=== PATIENT | female | born 1975 ===

== ENCOUNTER 2016-10-26 06:08 | Day surgery (SDC) | payer MEDICAID ==
[2016-10-22 11:21] VITALS: BMI 26.4
--- NOTE | 2016-10-26 06:52 | CP.SDSHP ---
Same Day Surgery H & P - History Proposed Procedure: Left ankle fibular ORIF with deltoid ligament repair Pre-Op Diagnosis: Left ankle fibular fracture and Deltoid ligament tear - Previous Medical/Surgical History Cardiac: Other Pulmonary: Other Endocrine/Metabolic: Other Neuro: Other Misc: Hepatitis Pain: 4.Moderate Pain - Allergies Allergies: Allergies No Known Allergies Allergy (Verified 10/26/16 06:30) - Physical Exam Mental Status: Alert & Oriented x3 Neuro: WNL Heart: WNL Lungs: WNL GI: WNL - {Optional Preform as Required} Breast: Other Abdomen: Other Rectal: Other Integument: Other BUSINESS OPERATIONS SPECIALIST: Other : Other Ortho: Other ENT: Other - Impression Impression: Pt was seen and examined in SDS. Pt NPO status was confirmed. All Pre-op testing and clearance was in the chart. Pt has exhausted all conservative treatment at this time and is opting for surgical intervention. Pt was explained procedure and post-operative course. All pt's questions were answered to satisfaction. No guarantees were made. Pt understands all risks, benefits and complications of procedure. Pt will follow-up with Dr. Garcia Pt. Evaluated Today:Candidate for Anesthesia & Procedure: Yes Short Stay Discharge - Short Stay Discharge Admitting Diagnosis/Reason for Visit: LT FIBULAR FRACTURE Disposition: HOME/ ROUTINE Medications: Cephalexin [Keflex] 500 mg PO TID #21 cap oxyCODONE/Acetaminophen [Percocet 5/325 mg Tab] 5 - 325 mg PO Q4 PRN #20 tab PRN Reason: Pain, Moderate (4-7) Referrals: Sherri Landry MD [Primary Care Provider] - Podiatry Clinic [Outside] Follow-up: Follow up with Podiatry clinic at [facility] with Dr. Garcia Instructions: RICE Therapy (GEN), Oxycodone/Acetaminophen (By mouth), Acetaminophen/Codeine (By mouth), Crutch Instructions (DC), Crutch Instructions (GEN) Additional Instructions (Diet, Activity): Non-weight bearing to Left lower extremity with use of crutches Progress Note/Discharge Note with Instructions: Patient in good/stable condition for discharge home. Pt to resume medications per medical reconciliation. Resume regular diet. Please keep dressing clean, dry, & intact to surgical site, use plastic bag over bandage for showering, wear post op shoe at all times when ambulating, call clinic if you see signs of infection (redness, swelling, malodor), please make an appointment to see Dr. Garcia in office/clinic within 1 week for post-op check. (Wednesday)
--- NOTE | 2016-10-26 06:52 | CP.PCM.PN ---
Subjective - Date & Time of Evaluation Date of Evaluation: 10/26/16 Time of Evaluation: 06:30 - Subjective Subjective: 41 year old female patient with PMHx of alcohol abuse and Hep A was seen at bedside TCU this morning for scheduled surgery of Left fibular ORIF with Deltoid ligament repair. Patient presents with fracture to Left fibula at the level of ankle joint after slipping down from stairs two weeks ago. Patient states that she was going from her room to living room at night without light and slipped. Patient understands the plan for surgery of fixating her Left fibular with plates and screws. Patient agrees with the surgical plan. NPO status is confirmed with the patient. (No food or liquid after 6PM yesterday) Patient denies of any N/V/F/C or SOB today. Objective - Constitutional Appears: Well, Non-toxic, No Acute Distress - Extremities Exam Additional comments: Left lower extremity exam DERM: No open wound is noted. No erythema is noted around the Left ankle. No sign of acute infection is noted. VASC: Mild edema noted around the Left ankle. Non-palpable DP and PT noted bilaterally at 2/4/ [employer] less than 3 seconds noted to all digits bilaterally. NEURO: Gross sensation intact ORTHO: Pain on palpation - Neurological Exam Neurological Exam: Alert, Awake, Oriented x3 - Psychiatric Exam Psychiatric exam: Normal Affect, Normal Mood - Skin Skin Exam: Normal Color, Warm Assessment and Plan - Assessment and Plan (Free Text) Assessment: 41 yo female patient presenting with Left fibular fracture and Deltoid ligament tear Plan: Pt was seen and examined in SDS Pt NPO status was confirmed All Pre-op testing and clearance was in the chart Pt has exhausted all conservative treatment at this time and is opting for surgical intervention Pt was explained procedure and post-operative course All pt's questions were answered to satisfaction No guarantees were made Pt understands all risks, benefits and complications of procedure Pt will follow-up with Dr. Garcia
[2016-10-26] MEDS ORDERED: Bupivacaine 0.5% 50 ML IJ ONE (06:55)
[2016-10-26] MEDS ORDERED: ceFAZolin 1 GM in Sodium Chloride 0.9% 100 ML IVPB ONE (06:55)
[2016-10-26] MEDS ORDERED: Lidocaine 1% Inj (20ml) IJ ONE (06:55)
[2016-10-26] MEDS ORDERED: Lactated Ringer's 1,000 ML IV SCH (07:00)
[2016-10-26 07:05] LABS: BASO % 0.9 % (0.0-2.0); EOS # 0.1 K/uL (0.0-0.7); EOS % 2.1 % (0.0-4.0); HEMATOCRIT 39.5 % (34.0-47.0); LYMPH # 1.6 K/uL (1.0-4.3); MEAN CELL VOLUME 88.9 fl (81.0-99.0); MEAN CORPUSCULAR HEMOGLOBIN 28.7 pg (27.0-31.0); MEAN CORPUSCULAR HGB CONC 32.4 g/dL (33.0-37.0); MONO # 0.3 K/uL (0.0-0.8); MONO % 7.3 % (0.0-10.0); NEUT # 2.5 K/uL (1.8-7.0); NEUT % 55.7 % (50.0-75.0); NRBC % 0.4 % (0.0-0.0); RED CELL DISTRIBUTION WIDTH 17.2 % (11.5-14.5); WHITE BLOOD COUNT 4.6 K/uL (4.8-10.8)
[2016-10-26 07:07] VITALS: RESP 18
[2016-10-26] MEDS ORDERED: Bupivacaine 0.5% Inj(30mL) ONE (07:24)
[2016-10-26 07:27] LABS: PARTIAL THROMBOPLASTIN TIME 25.1 SECONDS (23.3-32.5)
[2016-10-26] MEDS ORDERED: Propofol 10 mg/ml Inj (20 ML) ONE (07:30)
[2016-10-26 07:31] LABS: BLOOD UREA NITROGEN 18 mg/dl (7-17); CALCIUM 9.2 mg/dL (8.4-10.2); CARBON DIOXIDE 22 mmol/L (22-30); CHLORIDE 106 mmol/L (98-107); GFR AFRICAN-AMERICAN > 60; GLUCOSE,RANDOM 86 mg/dL (65-105); POTASSIUM 4.1 MMOL/L (3.6-5.0); SODIUM 141 mmol/l (132-148)
[2016-10-26] MEDS ORDERED: Rocuronium 10 mg/ml (5 ml) ONE (07:31)
[2016-10-26] MEDS ORDERED: Succinylcholine 200 mg/10 ml Inj IV ONE (07:31)
[2016-10-26] MEDS ORDERED: Neostigmine Methylsulfate 3mg/3ml Syringe IV ONE (07:31)
[2016-10-26] MEDS ORDERED: Midazolam 2 MG/2 ML VIAL ONE (07:31)
--- NOTE | 2016-10-26 07:55 | CARD ---
APPROVED REPORT EKG Measurement Heart [id number] AL [id number] <Conclusion> Sinus bradycardia Otherwise normal ECG
[2016-10-26] MEDS ORDERED: Lactated Ringer's 1,000 ML IV ONE ×2 (08:54→10:50)
[2016-10-26] MEDS ORDERED: HYDROmorphone 0.5 mg/0.5 ml ISec IVP PRN (08:57)
[2016-10-26] MEDS ORDERED: DiphenhydrAMINE 50 mg/ml Inj IVP PRN (08:57)
[2016-10-26] MEDS ORDERED: Ropivacaine 0.5% 30ML IV ONE (09:43)
[2016-10-26] MEDS ORDERED: Bupivacaine HCl 0.25% PF (10 ml) Inj ONE (10:56)
[2016-10-26] MEDS ORDERED: Liquid Adhesive TOP ONE (10:57)
[2016-10-26] MEDS ORDERED: Bupivacaine HCl 0.25% PF (10 ml) Inj IJ ONE (11:04)
[2016-10-26] MEDS ORDERED: Bumetanide 0.25 MG/ML 10ml inj IV ONE (11:04)
[2016-10-26] MEDS ORDERED: Oxycodone/Acetaminophen 5/325 mg Tab PO PRN ×2 (12:00)
--- NOTE | 2016-10-26 12:03 | PCM.SURG1 ---
Surgeon's Initial Post Op Note - Surgeon's Notes Surgeon: Dr. Garcia DPM File Machine Operator: Dr. Anand PGY-3, Dr. Fowler PGY-3 Anesthesia Administered By: Dr. Petersen Pre-Operative Diagnosis: Left anklefibular fracture with deltoid ligament rupture Operative Findings: Materials: 3-0 Vicryl. 4-0 Prolene. 1x 5 hole 1/3 tubular plate. 2x 2.7 screws. 1x Arthrex Internal Brace Post-Operative Diagnosis: same Operation Performed: Left ankle ORIF with deltoid ligament repair Specimen/Specimens Removed: None Estimated Blood Loss: EBL {In ML}: 10 Blood Products Given: N/A Drains Used: No Drains Post-Op Condition: Good Date of Surgery/Procedure: 10/26/16 Time of Surgery/Procedure: 08:10
[2016-10-26] MEDS: HYDROmorphone 0.5 mg/0.5 ml ISec IVP PRN ×3 (12:10→13:00)
--- NOTE | 2016-10-26 12:36 | PCM.ANESB2 ---
Popliteal Nerve Block - Popliteal Nerve Block Date of Procedure: 10/26/16 Anesthesiologist: Trinity Pre-Procedure Diagnosis: Left fibular fracture Post-Procedure Diagnosis: Left fibular fracture Procedure Performed: Popliteal Nerve Block Left - Procedure Popliteal Nerve Block: This procedure was explained to the patient that it is for post-operative pain management. Consent was obtained after a thorough discussion with the patient regarding the benefits and possible complications of local anesthetic block of the sciatic nerve at the popliteal level. The patient was brought to the operating room and standard monitors are applied. Time-out was held with the circulating nurse to confirm the correct surgery and the appropriate block. After applying oxygen by nasal cannula and administering IV Sedation, patient's operative leg was gently raised and supported and the groove in between the biceps femoris and vastus lateralis muscles was carefully palpated. The skin approximately 8cm above the popliteal crease was then marked. The ultrasound transducer was then applied to the posterior thigh approximately 8cm above the popliteal crease in the transverse plane and the sciatic nerve before its division was visualized lateral to the popliteal artery and in between the bicep femoris and semimembranosus/semitendinosus muscles. After identification, the lateral portion of the thigh was prepped with Betadine solution three times and Lidocaine 1% was injected subcutaneously for topical anesthesia. At this point, a # 21 gauge Stimuplex insulated 4 inch needle was inserted into pre-marked area and advanced in a perpendicular direction. The needle was inserted above the ultrasound transducer in-plane towards the sciatic nerve in a [id number] direction. Needle advancement was performed carefully under direct ultrasound visualization. Nerve stimulator was used and dorsiflexion of the left foot was elicited at a current of 0.3 MA. After repeated negative aspiration, 20 cc of 0.5 % Ropivicaine was injected. Under ultrasound guidance the local anesthetics were observed tenting the epidural sheath and surrounding the roots of the sciatic nerve. The needle was removed intact and sterile dressing was applied. The patient tolerated the popliteal nerve block well with stable vital signs and was subsequently prepared for the surgery.
--- NOTE | 2016-10-26 12:54 | RAD ---
Left ankle radiographs History: Left ankle surgery Comparison: None available Findings: Images are obtained through a cast which obscures osseous detail. Metallic plate and screw fixation of the distal fibula. Alignment appears satisfactory. Remainder of the visualized osseous structures appear unremarkable. Impression: Metallic plate and screw fixation of the distal fibula.
--- NOTE | 2016-10-26 13:01 | RAD ---
PROCEDURE: Open reduction internal fixation left ankle fracture HISTORY: LEFT ANKLE COMPARISON: None TECHNIQUE: Standard protocol for this study/examination. FINDINGS: Total fluoroscopic time (continuous mode) utilized during the procedure: 85.8 seconds IMPRESSION: Submitted images from the current procedure: 14
[2016-10-26] MEDS ORDERED: Oxycodone/Acetaminophen 5/325 mg Tab PO ONE (15:25)
[2016-10-26 15:37] VITALS: TEMP 98
[2016-10-26 18:14] VITALS: BP 120/80; PULSE 88; O2SAT 99
--- NOTE | 2016-10-28 10:26 | OP ---
PROCEDURE DATE: 10/26/2016 SURGEON: Bill Garcia DPM REIMBURSEMENT CONSULTANT: Kika PGY-3. SECOND REIMBURSEMENT CONSULTANT: Malcolm PGY-3 ANESTHESIA: General with popliteal block. PREOPERATIVE DIAGNOSES: 1. Displaced fibular fracture, left. 2. Deltoid ligament tear, left ankle. POSTOPERATIVE DIAGNOSES: 1. Displaced fibular fracture, left. 2. Deltoid ligament tear, left ankle. PROCEDURE: 1. Open reduction and internal fixation of displaced fibular fracture, left ankle. 2. Repair of deltoid ligament tear with Arthrex internal brace, left ankle. INDICATIONS: The patient is a 41-year-old female with the above-mentioned diagnosis. The patient re ported falling 2 weeks ago and she was seen in the Emergency Room and told that she had a fractured a nkle. The patient is now requesting surgical intervention. The patient signed the consent after car eful explanation of all risks, benefits, complications, and alternatives to surgical procedure. No g uarantees were given nor implied. PREPARATION: The patient was brought to the operating room, placed on the operating room table in morillo pine position. A well-padded thigh tourniquet was applied to patient's left thigh. After induction of general anesthesia, the patient's left lower extremity was prepped and draped in usual sterile man ner. The patient's left lower extremity was then exsanguinated with Esmarch and the pneumatic thigh tourniquet was inflated to 300 mmHg and the procedure began. PROCEDURE #1 OPEN REDUCTION AND INTERNAL FIXATION OF LEFT DISPLACED FIBULAR FRACTURE: Attention was directed to the lateral aspect of the patient's left lower extremity where, utilizing a #15 blade, a 6 cm linear longitudinal incision was created overlying the central aspect of the distal fibula. Th e incision was deepened through subcutaneous tissue with care being taken to identify and retract all vital neurovascular structures. All bleeders were cauterized and ligated as necessary. At this rahda e, utilizing a #15 blade, a linear longitudinal incision was created through the periosteum in the sa pa attitude as the skin incision. The periosteum was then carefully freed from its osseous attachmen ts and reflected medially and laterally, exposing the distal aspect of the fibula as well as the spir al fracture into the operative field. At this time, the distal fracture fragment was mobilized and t he fracture itself was debrided of all soft tissue utilizing a curette. Next, with the use of a redu ction clamp, the fibular fracture was then distracted and reduced and temporarily fixated utilizing t he reduction clamp. Proper reduction was verified under fluoroscopy, making sure that the fibula had been brought out to proper length and that the ankle mortise had been restored. Once proper positio vance was verified under fluoroscopy, following standard AO principles and technique, a 2.7 lag screw was placed perpendicular to the fracture fragment. At this time, a 5-hole one-third tubular Synthes plate was placed across the fracture fragment and it was then filled with the appropriate locking and nonlocking cortical screws. At this time, the clamp was removed and again proper placement of the p late as well as proper length of the fibula was verified under fluoroscopy. At this time, the incisi on site was flushed with copious amounts of normal sterile saline. The deep tissue was reapproximate d and coapted utilizing 3-0 Vicryl. The subcutaneous tissue was reapproximated and coapted utilizing 4-0 Vicryl and the skin was reapproximated and coapted utilizing 4-0 Prolene in a running subcuticul ar technique. PROCEDURE #2 REPAIR OF DELTOID LIGAMENT TEAR, LEFT ANKLE: At this time, attention was directed to th e medial aspect of the patient's left ankle. Utilizing a #15 blade, a 4 cm linear longitudinal incis ion was created starting at the distal aspect of the patient's medial malleolus and extending distall y over the subtalar joint. The incision was deepened through subcutaneous tissues with care being ta noble to identify and retract all vital neurovascular structures. All bleeders were cauterized and lig ated as necessary. At this time, using fluoroscopy, the distal aspect of the medial malleolus was id entified and utilizing a #15 blade, a stab incision was created overlying the periosteum and all soft tissue was freed from the distal aspect of the medial malleolus. At this time, utilizing the drill bit from the Arthrex internal brace kit, a drill hole was created in the distal aspect of the medial malleolus and a full tap was performed. At this time, the suture anchor with the FiberTape loaded on to it was placed within the medial malleolus. Attention was then directed to the medial aspect of th e ____ where, under fluoroscopy, the sustentaculum sari was identified. At this time, a stab incisio n was created overlying the sustentaculum sari. All soft tissue was then cleared from the sustentacu lum sari and a guidewire was driven into the sustentaculum sari at the place where the second suture anchor for the Arthrex internal brace would be placed. Proper placement was again verified under flu oroscopy. At this time, the drill bit was placed over the guidewire and the sustentaculum sari was d rilled and tapped utilizing the instrumentation from the Arthrex internal brace kit. At this time, t he FiberTape was fed into the second Arthrex anchor and then with the foot placed in neutral, the sec ond anchor for the internal brace was then placed into the sustentaculum sari with proper tension not ed. Once the second anchor had been seated, the ankle joint was taken through a range of motion to m olaf sure that proper amount of tension had been placed at the deltoid ligament. All redundant FiberT ape was removed. The incision site was then flushed with copious amounts of normal sterile saline. The deep tissue was reapproximated and coapted utilizing 0 Vicryl. The subcutaneous tissue was reapp roximated and coapted utilizing 4-0 Vicryl and the skin was reapproximated and coapted utilizing 4-0 Prolene in a running subcuticular technique. All incision sites were then dressed with Steri-Strips and Betadine-soaked Adaptic. The patient did receive a postoperative injection of 10 mL of 0.5% Link paula plain on the medial side to block for the saphenous. The incision sites were then dressed in DS D and the patient was placed in a well-padded posterior splint with the foot held in 90 degrees in re lation to the leg. POSTOPERATIVE CONDITION: The patient tolerated the procedure and anesthesia well. The patient recei palak a popliteal block in the operating room and then was transferred to PACU with all vital signs sta ble and neurovascular status intact. The patient will be nonweightbearing in a posterior splint and crutches and will follow up with Dr. Garcia in the podiatry clinic at [facility] in 1 week. Paulina Rodriguez DPM Bill Garcia DPM cc: [id number] TT: 10/28/2016 10:26:05 tn
== END 2016-10-26 17:45 | disposition home or self-care (01) ==
LOC: H.OPSURG 06:08
PROVIDERS: ATTEND Podiatrist Foot & Ankle Surgery
DX: S82.492S Other fracture of shaft of left fibula, sequela (principal); S93.422S Sprain of deltoid ligament of left ankle, sequela; W19.XXXS Unspecified fall, sequela

== ENCOUNTER 2017-03-06 16:50 | Observation (INO) | payer MEDICAID ==
[2017-03-06 16:50] VITALS: BMI 22.4
[2017-03-06 16:54] VITALS: BP 111/82; PULSE 103; RESP 18; TEMP 98.6; O2SAT 95
--- NOTE | 2017-03-06 18:08 | ED PDOC ---
HPI: Psych/Substance Abuse Time Seen by Provider: 03/06/17 16:59 Chief Complaint (Nursing): Alcohol Ingestion ED Caveat: Intoxicated History Per: Patient, EMS History/Exam Limitations: intoxication Onset/Duration Of Symptoms: Days (1) Current Symptoms Are (Timing): Still Present Modifying Factor(s): Alcohol Severity: Moderate Pain Scale Rating Of: 0 Involuntary Hold By: None Additional History Per: Patient Additional Complaint(s): Pt co alcohol intoxication and requesting detox. Pt was binge drinking for last 3 weks. Pt had a pint of vodka today. No medical complains. Past Medical History Reviewed: Historical Data, Nursing Documentation, Vital Signs Vital Signs: Last Vital Signs Temp 98.6 F 03/06/17 16:52 Pulse 103 H 03/06/17 16:52 Resp 18 03/06/17 16:52 BP 111/82 03/06/17 16:52 Pulse Ox 95 03/06/17 16:52 - Medical History PMH: Bipolar Disorder, Depression, Hepatitis (Childhood hx) Denies: Diabetes, HIV, HTN, Chronic Kidney Disease, Seizures, Sexually Transmitted Disease - Surgical History Surgical History: No Surg Hx - Family History Family History: States: No Known Family Hx - Immunization History Hx Tetanus Toxoid Vaccination: No Hx Influenza Vaccination: No Hx Pneumococcal Vaccination: No - Home Medications Home Medications: Ambulatory Orders Medication Instructions Recorded No Known Home Med 02/02/17 - Allergies Allergies/Adverse Reactions: Allergies Allergy/AdvReac Type Severity Reaction Status Date / Time No Known Allergies Allergy Verified 03/06/17 16:51 Review of Systems ROS Statement: Except As Marked, All Systems Reviewed And Found Negative Physical Exam - Reviewed Nursing Documentation Reviewed: Yes Vital Signs Reviewed: Yes - Physical Exam Appears: Positive for: Non-toxic, No Acute Distress Head Exam: Positive for: ATRAUMATIC, NORMAL INSPECTION Skin: Positive for: Warm, Dry Eye Exam: Positive for: EOMI, PERRL Neck: Positive for: Painless ROM, Supple Cardiovascular/Chest: Positive for: Regular Rate, Rhythm. Negative for: Tachycardia Respiratory: Positive for: Normal Breath Sounds. Negative for: Rales, Wheezing Gastrointestinal/Abdominal: Positive for: Soft. Negative for: Tenderness Extremity: Positive for: Normal ROM Neurologic/Psych: Positive for: Alert, Oriented, Gait (unsteady), Other ( slurred speech) - ECG O2 Sat by Pulse Oximetry: 95 Medical Decision Making Medical Decision Making: Alcohol intoxication plans alcohol reassess ED obs 2100 Pt is awake and alert. ED OBSERVATION Date of observation admission: 03/06/17 Time of observation admission: 18:00 - Observation admission statement Patient is being placed in observation because:: Pending clinical sobriety. - Progress Note Progress Note: 03/06/17 20:50 Stable no changes, comfortably sleeping. reassess Disposition - Clinical Impression Clinical Impression: Alcohol abuse with intoxication - Patient ED Disposition Is Patient to be Admitted: No Counseled Patient/Family Regarding: Studies Performed, Diagnosis - Disposition Disposition: Routine/Home Disposition Time: 21:25 Condition: IMPROVED
== END 2017-03-06 21:20 | disposition home or self-care (01) ==
LOC: H.ER 16:50 → H.EROBSV 18:08
PROVIDERS: ADMIT Emergency Medicine; ATTEND Emergency Medicine
DX: F10.129 Alcohol abuse with intoxication, unspecified (principal); F31.9 Bipolar disorder, unspecified; F32.9 Major depressive disorder, single episode, unspecified; K75.9 Inflammatory liver disease, unspecified; Y90.8 Blood alcohol level of 240 mg/100 ml or more

== ENCOUNTER 2017-04-08 14:50 | Observation (INO) | payer MEDICAID ==
[2017-04-08 14:50] VITALS: BMI 22.4
[2017-04-08] MEDS ORDERED: Sodium Chloride 0.9% 1,000 ML IV STA (15:30)
--- NOTE | 2017-04-08 15:41 | ED PDOC ---
HPI: Back Time Seen by Provider: 04/08/17 15:20 Chief Complaint (Nursing): Back Pain Chief Complaint (Provider): Back Pain History Per: Patient History/Exam Limitations: no limitations Current Symptoms Are (Timing): Still Present Additional Complaint(s): 41 y/o female presents to the emergency department via ambulance after she called them due to experiencing left-sided low back pain x3 days. States pain started out of nowhere in which she cannot bend down nor do anything. Patient also reports urinating more than usual and experiencing "bladder" pain with diarrhea because she had been drinking since 04/03/2017, although does not consider herself an alcoholic because she drinks for 5 days and then stops for 1 month. Denies fall, headache, nausea, vomiting, hematuria, dysuria, chest pain, or shortness of breath. No numbness, tingles. No incontinence, constipation. Past Medical History Reviewed: Historical Data, Nursing Documentation, Vital Signs Vital Signs: Last Vital Signs Temp 98 F 04/08/17 14:51 Pulse 100 H 04/08/17 14:51 Resp 18 04/08/17 14:51 BP 110/74 04/08/17 14:51 Pulse Ox 97 04/08/17 14:51 - Medical History PMH: Bipolar Disorder, Depression, Hepatitis (Childhood hx) Denies: Diabetes, HIV, HTN, Chronic Kidney Disease, Seizures, Sexually Transmitted Disease - Family History Family History: States: Unknown Family Hx - Social History Current smoker - smoking cessation education provided: No Alcohol: > 2 Drinks/Day Drugs: Denies - Immunization History Hx Tetanus Toxoid Vaccination: No Hx Influenza Vaccination: No Hx Pneumococcal Vaccination: No - Home Medications Home Medications: Ambulatory Orders Medication Instructions Recorded No Known Home Med 02/02/17 - Allergies Allergies/Adverse Reactions: Allergies Allergy/AdvReac Type Severity Reaction Status Date / Time No Known Allergies Allergy Verified 03/06/17 16:51 Review of Systems ROS Statement: Except As Marked, All Systems Reviewed And Found Negative Cardiovascular: Negative for: Chest Pain Respiratory: Negative for: Shortness of Breath Gastrointestinal: Positive for: Abdominal Pain (suprapubic), Diarrhea (states because she has been drinking a lot). Negative for: Nausea, Vomiting Genitourinary Female: Positive for: Frequency (Urinates more than usual). Negative for: Dysuria, Hematuria Musculoskeletal: Positive for: Back Pain (Left lower back). Negative for: Other (fall) Neurological: Negative for: Headache Physical Exam - Reviewed Nursing Documentation Reviewed: Yes Vital Signs Reviewed: Yes - Physical Exam Appears: Positive for: Non-toxic, No Acute Distress Head Exam: Positive for: ATRAUMATIC, NORMAL INSPECTION, NORMOCEPHALIC Skin: Positive for: Normal Color, Warm, Dry Eye Exam: Positive for: Normal appearance, EOMI, PERRL ENT: Positive for: Normal ENT Inspection Neck: Positive for: Normal, Supple Cardiovascular/Chest: Positive for: Regular Rate, Rhythm. Negative for: Murmur Respiratory: Positive for: Normal Breath Sounds. Negative for: Accessory Muscle Use, Respiratory Distress Gastrointestinal/Abdominal: Positive for: Soft, Tenderness (Suprapubic region). Negative for: Normal Exam, Other (No tenderness to the periumbilical, upper, lower, or flank region. ) Back: Positive for: Other (Tenderness to the left lower back ). Negative for: Normal Inspection, L CVA Tenderness, R CVA Tenderness Extremity: Positive for: Normal ROM. Negative for: Tenderness, Pedal Edema Neurologic/Psych: Positive for: Alert, Oriented (x3) - Laboratory Results Result Diagrams: 04/08/17 14:48 04/08/17 14:48 - ECG O2 Sat by Pulse Oximetry: 97 (RA) Pulse Ox Interpretation: Normal - Radiology X-Ray: Interpreted by Me, Viewed By Me X-Ray Interpretation: No Acute Disease - CT Scan/US ct Other Rad Studies (CT/US): Read By Radiologist Other Rad Interpretation: no acute Medical Decision Making Medical Decision Making: Time: 15:30 Initial impression: Back pain and ETOH Initial plan: --Alcohol serum --CMP --Drug Screen, urine --Urine DIP & Preg --CBC w/ diff --Lumbar Spine x-ray --Toradol 15 mg IVP --Sodium Chloride 1L IV --Admit to hospital routine: ED Obs for back pain and alcohol abuse. Any further documentation will be included within ED Obs section of chart. Scribe Attestation: Documented by Marietta Ramirez, acting as a scribe for Patrick Shen MD. Provider Scribe Attestation: All medical record entries made by the Scribe were at my direction and personally dictated by me. I have reviewed the chart and agree that the record accurately reflects my personal performance of the history, physical exam, medical decision making, and the department course for this patient. I have also personally directed, reviewed, and agree with the discharge instructions and disposition. ED OBSERVATION Discharge: Yes Date of observation admission: 04/08/17 Time of observation admission: 15:30 - Observation admission statement Patient is being placed in observation because:: Alcohol abuse and back pain - Goals of Observation Goals of observation are:: Resolution of symptoms. - Progress Note Progress Note: 04/08/17 19:24 Feels better. Walking around in the ED. AAOx3. Tolerated PO. No pain. Disposition - Clinical Impression Clinical Impression: Alcohol intoxication, Back pain - Patient ED Disposition Is Patient to be Admitted: No Counseled Patient/Family Regarding: Studies Performed, Diagnosis, Need For Followup - Disposition Disposition: Routine/Home Disposition Time: 19:26 Condition: STABLE
[2017-04-08 16:12] LABS: BASO # 0.1 K/uL (0.0-0.2); BASO % 1.4 % (0.0-2.0); EOS # 0.1 K/uL (0.0-0.7); EOS % 2.1 % (0.0-4.0); HEMATOCRIT 41.2 % (34.0-47.0); LYMPH # 2.2 K/uL (1.0-4.3); MEAN CELL VOLUME 90.1 fl (81.0-99.0); MEAN CORPUSCULAR HEMOGLOBIN 29.6 pg (27.0-31.0); MEAN CORPUSCULAR HGB CONC 32.8 g/dL (33.0-37.0); MONO # 0.1 K/uL (0.0-0.8); MONO % 3.4 % (0.0-10.0); NEUT # 1.9 K/uL (1.8-7.0); NEUT % 43.1 % (50.0-75.0); NRBC % 0.2 % (0.0-0.0); RED CELL DISTRIBUTION WIDTH 16.7 % (11.5-14.5); WHITE BLOOD COUNT 4.4 K/uL (4.8-10.8)
[2017-04-08 16:37] LABS: ALB/GLOB RATIO 1.4 (1.0-2.1); ALKALINE PHOSPHATASE 59 U/L (38-126); ALT/SGPT 32 U/L (9-52); AST/SGOT 58 U/L (14-36); BILIRUBIN,TOTAL 0.4 mg/dl (0.2-1.3); BLOOD UREA NITROGEN 9 mg/dl (7-17); CALCIUM 8.6 mg/dL (8.4-10.2); CARBON DIOXIDE 21 mmol/L (22-30); CHLORIDE 112 mmol/L (98-107); GFR AFRICAN-AMERICAN > 60; GLUCOSE,RANDOM 91 mg/dL (65-105); POTASSIUM 4.1 MMOL/L (3.6-5.0); SODIUM 148 mmol/l (132-148); TOTAL PROTEIN 7.4 G/DL (6.3-8.2)
[2017-04-08 16:53] LABS: ALCOHOL SERUM 423 mg/dl (0-10)
--- NOTE | 2017-04-08 17:22 | CT ---
PROCEDURE: CT Abdomen and Pelvis without Oral or IV contrast. HISTORY: R/O stone COMPARISON: None available. TECHNIQUE: Contiguous axial images of the abdomen and pelvis. No oral or IV contrast administered. Coronal and Sagittal reformats generated and reviewed. Radiation dose: Total exam DLP = 633.19 mGy-cm. This CT exam was performed using one or more of the following dose reduction techniques: Automated exposure control, adjustment of the mA and/or kV according to patient size, and/or use of iterative reconstruction technique. FINDINGS: There is limited evaluation of the solid organs without the administration of IV contrast. LOWER THORAX: No visible consolidation, pleural effusion, or pneumothorax. LIVER: Unremarkable unenhanced appearance. GALLBLADDER AND BILE DUCTS: Unremarkable unenhanced appearance. PANCREAS: Unremarkable unenhanced appearance. SPLEEN: Unremarkable unenhanced appearance. ADRENALS: Unremarkable unenhanced appearance. KIDNEYS AND URETERS: No hydronephrosis or obstructing renal calculus. BLADDER: The urinary bladder appears unremarkable. REPRODUCTIVE: Uterus is present. APPENDIX: The appendix appears within normal limits of caliber. No secondary signs of acute appendicitis. BOWEL: The stomach is nondistended. Lack of oral contrast limits evaluation for bowel pathology. The bowel loops appear within normal limits of caliber without evidence of intestinal obstruction. PERITONEUM: No significant free fluid. No definite free air. LYMPH NODES: No bulky lymphadenopathy identified. VASCULATURE: No aortic aneurysm. BONES: No acute osseous abnormality is detected. OTHER FINDINGS: None. IMPRESSION: No acute findings. See above.
[2017-04-08 20:27] VITALS: BP 120/78; PULSE 90; RESP 16; TEMP 98.2; O2SAT 100
--- NOTE | 2017-04-09 09:31 | RAD ---
PROCEDURE: Radiographs of the Lumbar Spine. HISTORY: back pain COMPARISON: No prior. FINDINGS: BONES: No evidence of acute compression fractures no retropulsed fragments. Vertebral bodies exhibit normal stature. Pedicles appear intact. Vertebral bodies and facets normally aligned. . DISC SPACES: Disc space heights maintained. OTHER FINDINGS: None. IMPRESSION: No acute fractures. Consider followup CT scan if symptoms OR pain persists.
== END 2017-04-08 19:35 | disposition home or self-care (01) ==
LOC: H.ER 14:50 → H.EROBSV 15:31
PROVIDERS: ADMIT Emergency Medicine; ATTEND Emergency Medicine
DX: F10.129 Alcohol abuse with intoxication, unspecified (principal); Y90.8 Blood alcohol level of 240 mg/100 ml or more; M54.5 Low back pain; F31.9 Bipolar disorder, unspecified
CPT/HCPCS: 36415; 72100; 74176; 80053; 80320; 80324; 80345; 80346; 80349; 80353; 80358; 80361; 81025; 82948; 83992; 85025; 96374; 99283; G0378; J1885; J7040

== ENCOUNTER 2019-01-05 16:10 | Emergency (ER) | payer MEDICAID ==
[2019-01-05 16:10] VITALS: BMI 25.4
[2019-01-05] MEDS ORDERED: Multivitamin (MVI) 10 ML, Thiamine 100 MG, Folic Acid 1 MG in Dextrose 5%/0.45% NS 1,00... IV STA (16:34)
[2019-01-05] MEDS ORDERED: Dextrose 50% SYRINGE Inj (50 ml) IVP STA (16:48)
--- NOTE | 2019-01-05 16:51 | ED PDOC ---
HPI: Psych/Substance Abuse Time Seen by Provider: 01/05/19 16:17 Chief Complaint (Nursing): Alcohol Ingestion Chief Complaint (Provider): Alcohol Intoxication ED Caveat: Intoxicated History Per: Patient History/Exam Limitations: intoxication Onset/Duration Of Symptoms: Hrs Additional Complaint(s): 43 year old female presents to ED with alcohol intoxication. She called 911 because she felt like she needed help. Patient admits to drinking at least a pint of liquor everyday for 5 months. She reports having been in detox in the past. Patient also reports anxiety and depression but denies SI/HI, hallucinations. Her last drink was earlier today. Patient does not take any medications. Patients history may be unreliable due to intoxication. PMD: none Past Medical History Reviewed: Historical Data, Nursing Documentation, Vital Signs Vital Signs: Last Vital Signs Temp 98.6 F 01/05/19 16:12 Pulse 115 H 01/05/19 16:12 Resp 18 01/05/19 16:12 BP 120/79 01/05/19 16:12 Pulse Ox 97 01/05/19 16:12 Primary Care Provider: Non [facility] Provider, - Medical History PMH: Bipolar Disorder, Depression, Hepatitis (Childhood hx), Hyperlipidemia Denies: HIV, HTN, Chronic Kidney Disease, Seizures, Sexually Transmitted Disease - Surgical History Other surgeries: left ankle surgery - Family History Family History: States: CAD Other Family History: alcoholism - Social History Current smoker - smoking cessation education provided: No Alcohol: > 2 Drinks/Day Drugs: Denies - Immunization History Hx Tetanus Toxoid Vaccination: No Hx Influenza Vaccination: No Hx Pneumococcal Vaccination: No - Home Medications Home Medications: Ambulatory Orders Medication Instructions Recorded No Known Home Med 02/04/18 - Allergies Allergies/Adverse Reactions: Allergies Allergy/AdvReac Type Severity Reaction Status Date / Time No Known Allergies Allergy Verified 01/05/19 16:15 Review of Systems ROS Statement: Except As Marked, All Systems Reviewed And Found Negative Constitutional: Positive for: Weakness, Other (fatigue) Psych: Positive for: Anxiety, Depression, Other (alcohol intoxication, denies hallucinations). Negative for: Suicidal ideation (and HI) Physical Exam - Reviewed Nursing Documentation Reviewed: Yes Vital Signs Reviewed: Yes - Physical Exam Appears: Positive for: In Acute Distress (psychiatric). Negative for: Non-toxic (intoxicated) Head Exam: Positive for: ATRAUMATIC, NORMOCEPHALIC Skin: Positive for: Warm, Dry Eye Exam: Positive for: EOMI, PERRL. Negative for: Nystagmus, Scleral icterus ENT: Negative for: Moist Mucous Membranes (dry) Neck: Positive for: Painless ROM, Supple Cardiovascular/Chest: Positive for: Regular Rate, Rhythm. Negative for: Murmur Respiratory: Positive for: Normal Breath Sounds. Negative for: Respiratory Distress Gastrointestinal/Abdominal: Positive for: Soft. Negative for: Tenderness Back: Positive for: Normal Inspection. Negative for: Decreased ROM Extremity: Positive for: Normal ROM. Negative for: Deformity Lymphatic: Negative for: Adenopathy Neurological/Psych: Positive for: Oriented, Mood/Affect (sad mood and affect), Other (somewhat sleepy, poor concentration, slightly slurred speech). Negative for: Motor/Sensory Deficits - Laboratory Results Result Diagrams: 01/05/19 17:30 01/05/19 17:30 - ECG O2 Sat by Pulse Oximetry: 97 (RA) Pulse Ox Interpretation: Normal Medical Decision Making Medical Decision Making: Time: 1643 Initial Impression: alcohol use disorder, acute intoxication Ddx: dehydration, electrolyte abnormality, depression Initial Plan: --Labs (CMP, CBC, Lipase, Magnesium, Phosphorous, Prothrombin) --U-preg, U-dip --IV Fluids Markedly elevate BAL. However previous visits for alcohol intoxication demonstrates similar and higher levels. Pt had low accucheck, given D50 and juice in ER. 7p Pt ate meal in ER. Speech no longer slurred. 8p Pt ambulating in ER and with steady gait. No signs of withdrawal. Eager to be discharged. DW pt risks of alcohol abuse and addiction resources given. Scribe Attestation: Documented by Alon Chavez acting as a scribe for Silvina Louise MD. Provider Scribe Attestation: All medical record entries made by the Scribe were at my direction and personally dictated by me. I have reviewed the chart and agree that the record accurately reflects my personal performance of the history, physical exam, medical decision making, and the department course for this patient. I have also personally directed, reviewed, and agree with the discharge instructions and disposition. Disposition - Clinical Impression Clinical Impression: Alcohol abuse with uncomplicated intoxication Counseled Patient/Family Regarding: Studies Performed, Diagnosis - Disposition Referrals: Alcoholics Anonymous [Outside] [facility] [Outside] Disposition: Routine/Home Disposition Time: 20:00 Condition: IMPROVED Additional Instructions: YOU NEED TO STOP DRINKING OR YOUR WILL CAN HAVE PERMANENT DISABILITY OR . PLEASE REVIEW THE FOLLOWING RESOURCES FOR ADDICTION HELP. Instructions: Alcohol Abuse and Alcoholism (DC)
[2019-01-05 17:50] LABS: BASO % 0.8 % (0.0-2.0); EOS % 0.2 % (0.0-4.0); HEMOGLOBIN 14.9 g/dL (12.0-16.0); LYMPH % 38.6 % (20.0-40.0); MEAN CELL VOLUME 89.6 fl (81.0-99.0); MEAN CORPUSCULAR HEMOGLOBIN 30.3 pg (27.0-31.0); MEAN CORPUSCULAR HGB CONC 33.9 g/dL (33.0-37.0); MEAN PLATELET VOLUME 8.4 fl (7.2-11.7); MONO # 0.1 K/uL (0.0-0.8); MONO % 2.8 % (0.0-10.0); NEUT % 57.6 % (50.0-75.0); NRBC % 0.1 % (0.0-0.0); RBC 4.92 Mil/uL (3.80-5.20); RED CELL DISTRIBUTION WIDTH 14.1 % (11.5-14.5); WHITE BLOOD COUNT 5.1 K/uL (4.8-10.8)
[2019-01-05 18:10] LABS: BENZODIAZEPINES, UR NEGATIVE (NEGATIVE); OPIATES, UR NEGATIVE (NEGATIVE); PHENCYCLIDINE, UR NEGATIVE (NEGATIVE)
[2019-01-05 18:13] LABS: INR 0.9; PROTHROMBIN TIME 10.8 Seconds (9.8-13.1)
[2019-01-05 18:22] LABS: ALB/GLOB RATIO 1.5 (1.0-2.1); ALBUMIN 4.7 g/dL (3.5-5.0); ALT/SGPT 44 U/L (9-52); AST/SGOT 66 U/L (14-36); BLOOD UREA NITROGEN 13 mg/dl (7-17); CALCIUM 8.4 mg/dL (8.4-10.2); GFR NON-AFRICAN AMERICAN > 60; LIPASE 64 U/L (23-300)
[2019-01-05 18:25] LABS: PARTIAL THROMBOPLASTIN TIME 17.9 Seconds (25.6-37.1)
[2019-01-05 18:28] LABS: BARBITURATES, UR NEGATIVE (NEGATIVE)
[2019-01-06 06:54] VITALS: BP 110/70; PULSE 90; RESP 18; TEMP 98.4; O2SAT 96
== END 2019-01-05 20:50 | disposition home or self-care (01) ==
LOC: H.ER 16:10
DX: F10.120 Alcohol abuse with intoxication, uncomplicated (principal); E78.5 Hyperlipidemia, unspecified; Z86.59 Personal history of other mental and behavioral disorders; Z82.49 Family history of ischemic heart disease and other diseases of the circulatory system; Y90.8 Blood alcohol level of 240 mg/100 ml or more
CPT/HCPCS: 80053; 80320; 80324; 80345; 80346; 80349; 80353; 80358; 80361; 81025; 82948; 83690; 83735; 83992; 84100; 85025; 85610; 85730; 96374; 99284; J3411; J7042